=== PATIENT | female | born 2000 | race Caucasian/White ===

== ENCOUNTER 2025-07-01 18:14 | Emergency (ER) | payer OTHER ==
[~2025-07-01] VITALS: Ht 175.3 cm; Wt 115.0 kg
[2025-07-01 18:23] VITALS: BP 115/76; PULSE 114; RESP 16; O2SAT 98
[2025-07-01] MEDS ORDERED: normal saline 1000ml 1,000 ML IV ONE (18:35)
--- NOTE | 2025-07-01 19:06 | Physician Documentation ---
History of Present Illness ~ Chief Complaint: Seizure Stated Complaint: SEIZURE Time Seen by MD: 18:25 HPI 25 year old female BIB EMS with history of seizure disorder and with witnessed seizure today at the [facility]. She is 5 months and hasn't been taking any anti-seizure medications and isn't even sure which ones she is supposed to be on. She reportedly was seen at [facility] yesterday for a similar presentation. She has had no care. She denies fever, N/V/D, headache, cough, shortness of breath, abdominal pain, cramping, vaginal bleeding, urinary symptoms. Medication Reconciliation Allergies: Coded Allergies: adhesive (Verified Allergy, Unknown, 07/01/25) Review of Systems All Other Systems at this time: Reviewed and Negative Physical Exam Vital Signs: RN Vital Signs have been reviewed: Yes, Heart Rate: 114, Respiratory Rate: 16, BP: 115/76, Pulse Oximetry: 98, Weight: 115.000 Oxygen Flow Rate: 0 Physical Exam HEENT: PERRL, moist oral mucosa, EOMI Pulmonary: No respiratory distress MSK: no deformity Skin: w/d/i, no rash Neuro: alert, nonfocal Psych: normal affect Progress Results/Orders Reviewed/noted all lab results: Yes Results/Orders Orders - MICHELLE ORTEGA MD Heart Tones (07/01/25 18:31) Normal Saline 1000ml (0.9% Sodium Chlori (07/01/25 18:35) Cbc/Diff (07/01/25 18:32) CMP (07/01/25 18:32) Urinalysis, Cult If Indicated (07/01/25 18:32) Vital Signs 07/01/25 18:23 Pulse 114 Resp 16 B/P (MAP) 115/76 Pulse Ox 98 O2 Flow Rate 0 Medical Decision Making Findings 25 year old female with known seizure disorder and . Intended to perform a full workup but prior to this the patient elected to leave AMA despite thorough discussion of risks of leaving. Differential Dx:Considerations: Include: Psychogenic seizure, Due to alcohol withdrawl, Anticonvulsant withdrawl, Due to eclampsia, Due to hypoglycemia, Due to hyponatremia, Idiopathic, Encephalopathy, Epilepsy-break through Departure Disposition: 07 LEFT AGAINST MEDICAL ADVICE Impression: Primary Impression: Seizure disorder Condition: Stable Discharge Instructions: Seizure, Adult Referrals: NO PRIMARY CARE PROVIDER (PCP) Education Educated: Patient Educated regarding: diagnosis, treatment, prognosis, need for follow up Signature Scribe Signature: . Attestation: . MICHELLE ORTEGA MD Jul 01, 2025 19:06
== END 2025-07-01 19:05 | disposition left against medical advice (07) ==
LOC: ER 18:15
DX: O99.352 Diseases of the nervous system complicating pregnancy, second trimester (principal); Z3A.01 Less than 8 weeks gestation of pregnancy
CPT/HCPCS: 99283; J7030